=== PATIENT | male | born 1960 | race Caucasian/White ===

== ENCOUNTER 2022-07-06 17:15 | Outpatient (CLI) | payer BC, SELFPAY ==
[2022-07-06 21:20] LABS: Basophils Absolute Auto 0.05 K/uL (0.00-0.30); Basophils Percent Auto 0.6 % (0.0-3.0); Eosinophils Absolute Auto 0.28 K/uL (0.00-0.50); Eosinophils Percent Auto 3.2 % (0.0-7.0); Hematocrit 45.5 % (37.0-53.0); Hemoglobin* 16.1 gm/dL (13.5-17.5); Immature Granulocytes Abs Auto 0.08 K/uL (0.00-0.30); Immature Granulocytes Pct Auto 0.9 %; Lymphocytes Absolute Auto 2.67 K/uL (0.90-2.90); Lymphocytes Percent Auto 30.7 % (20-44); Mean Corpuscular HGB Conc 35 gm/dL (32-36); Mean Corpuscular Hemoglobin 31 pg (26-34); Mean Corpuscular Volume 86 fL (80-100); Monocytes Percent Auto 8.3 % (0.0-11.0); Neutrophils Absolute Auto 4.91 K/uL (1.7-7.0); Neutrophils Percent Auto 56.3 % (42.0-72.0); Platelet Count* 246 K/uL (140-440); RDW Coefficient of Variation % 13.3 % (11.5-15.5); Red Blood Count 5.27 m/uL (4.30-5.90); White Blood Count* 8.71 K/uL (4.50-11.00)
[2022-07-06 21:24] LABS: Slide Review Reflex No
[2022-07-06 21:36] LABS: Creatinine Urine 129.3 mg/dL
[2022-07-06 21:39] LABS: Albumin* 4.9 g/dL (3.3-5.0)
[2022-07-06 21:40] LABS: Chloride* 106 mmol/L (96-114); Potassium* 4.2 mmol/L (3.6-5.1); Sodium* 138 mmol/L (135-149)
[2022-07-06 21:42] LABS: Bilirubin Total* 0.5 mg/dL (0.1-1.5); Carbon Dioxide* 19 mmol/L (20-32); Cholesterol* 172 mg/dL (90-199); Creatinine* 0.9 mg/dL (0.5-1.5); Estimated Glomerular Filt Rate 97 ml/min
[2022-07-06 21:43] LABS: Alanine Aminotransferase* 34 U/L (4-50); Alkaline Phosphatase* 82 U/L (40-150); Aspartate Amino Transferase* 37 U/L (12-35); Blood Urea Nitrogen* 14 mg/dL (7-30); Calcium* 9.5 mg/dL (8.4-10.6); Glucose* 96 mg/dL (60-115); HDL Cholesterol* 34 mg/dL (>=40); LDL Cholesterol Calculated 80 mg/dL (<100); Total Protein* 7.7 g/dL (6.0-8.3); Triglycerides* 291 mg/dL (40-149)
[2022-07-06 21:43] LABS: Microalbumin Creatinine Ratio 10 mg/g (0-30); Microalbumin Urine 2 mg/dL
[2022-07-06 22:05] LABS: PSA Screen* 1.41 ng/mL (0.10-4.00)
== END 2022-07-06 17:16 | disposition home or self-care (01) ==
PROVIDERS: PCP Nurse Practitioner Family; Visit Provider Nurse Practitioner Family
DX: Z00.00 Encounter for general adult medical examination without abnormal findings (principal); E78.5 Hyperlipidemia, unspecified; E11.9 Type 2 diabetes mellitus without complications; Z13.0 Encounter for screening for diseases of the blood and blood-forming organs and certain disorders involving the immune mechanism; Z12.5 Encounter for screening for malignant neoplasm of prostate
CPT/HCPCS: 36415; 80053; 80061; 82043; 82570; 83036; 84153; 85025

== ENCOUNTER 2023-01-05 18:40 | Emergency (ER) | payer BC, SELFPAY ==
[2023-01-05 18:43] VITALS: BP 158/94; PULSE 83; RESP 18; TEMP 36.3; O2SAT 95; BMI 33.3
[2023-01-05] MEDS: lidocaine HCL 2 % MULTIDOSE 20 ML VIAL INJECTION (20:00)
--- NOTE | 2023-01-05 20:26 | ED.GENADULT ---
HPI - General Adult General Chief complaint: Laceration/Wound Stated complaint: Finger v Saw Time Seen by Provider: 01/05/23 18:46 History of Present Illness HPI narrative: 62-year-old man presenting to the emergency department with concern of lacerations to his fingers sustained from a table saw. He had actually just turned off the saw and reach to cross the still rotating blade. Affecting middle 4th and index finger. Middle Finger is apparently most affected ring finger next and then just and elie on the 1st finger. Spouse applied Hemabate. Apparently blood quite a bit. It is not reporting lightheadedness or shortness of breath. Is not on anticoagulation. Related Data Home Medications Medication Instructions Recorded Confirmed aspirin 81 mg tablet,delayed 81 mg PO 07/06/22 07/06/22 release Previous Rx's Medication Instructions Recorded atorvastatin 10 mg tablet 10 mg PO QHS 90 days #90 tabs 07/09/22 fenofibrate nanocrystallized 145 145 mg PO QDAY 90 days #90 tabs 07/09/22 mg tablet (Tricor) lisinopril 2.5 mg tablet 2.5 mg PO QDAY 90 days #90 tabs 07/09/22 metformin 500 mg tablet,extended 500 mg PO QDAY 90 days #90 tabs 07/09/22 release 24 hr Allergies Allergy/AdvReac Type Severity Reaction Status Date / Time No Known Drug Allergies Allergy Verified 01/05/23 18:43 Review of Systems Status of ROS: Reports: 6 or more systems reviewed and unremarkable except as noted in History and below PFSH [facility] Medical History History of colonic polyps ?Z86.010 - Personal history of colonic polyps (ICD-10) Surgical History Status post umbilical hernia repair, follow-up exam ?Z09 - Encounter for follow-up examination after completed treatment for conditions other than malignant neoplasm (ICD-10) History of colonoscopy ?Z98.890 - Other specified postprocedural states (ICD-10) History of carpal tunnel release ?Z98.890 - Other specified postprocedural states (ICD-10) Family History Family/Other Lung cancer Diabetes Social History Smoking Status: Never smoker Second hand tobacco smoke exposure: No How often do you have a drink containing alcohol: never How often do you have six or more drinks on one occasion: Never AUDIT-C Alcohol total score: 0 Non-prescribed substance use: denies use Exam Narrative: Exam Narrative: Pleasant. NAD but looks a little tremulous in think discomfort and fading adrenaline. Left hand with lightly blood stained paper towel. Some saw dust on clothing. Breathing easily. I return to block 3rd and 4th digits which appear to be most affected with lidocaine. This does result in good anesthesia. Subsequently soaked in Hibiclens solution able to remove gauze. Does lightly whose blood from fingertips. The distal/tip of the index fingers indeed just a small elie. The tip of the middle finger with regular laceration cutting the nail. In total about cm and a half. Drops ulnar side on the palmar surface of the nail. Similar ragged laceration about a cm the distal tip of the 4th finger. No apparent bony injuries. Const: Vital Signs, click to edit/add: Vital Signs - 24 hr 01/05/23 18:43 Temperature 97.4 F L Pulse Rate [Right Pulse Oximeter] 83 Respiratory Rate 18 Blood Pressure [Ri ght Upper Arm] 158/94 H Pulse Oximetry 95 Oxygen Delivery Me thod Room Air Documenting provider has reviewed patient's vital signs: yes Course Vital Signs Vital signs: Initial Vital Signs Temperature 97.4 F L 01/05/23 18:43 Temperature Source Temporal Artery Scan 01/05/23 18:43 Pulse Rate 83 01/05/23 18:43 Pulse Rhythm Regular 01/05/23 18:43 Pulse Strength 3+ Normal 01/05/23 18:43 Respiratory Rate 18 01/05/23 18:43 Blood Pressure 158/94 H 01/05/23 18:43 Blood Pressure Mean 115 H 01/05/23 18:43 Blood Pressure Position Supine 01/05/23 18:43 Pulse Oximetry 95 01/05/23 18:43 Oxygen Delivery Method Room Air 01/05/23 18:43 Vital Signs Temperature 97.4 F L 01/05/23 18:43 Pulse Rate 83 01/05/23 18:43 Respiratory Rate 18 01/05/23 18:43 Blood Pressure 158/94 H 01/05/23 18:43 Pulse Oximetry 95 01/05/23 18:43 Oxygen Delivery Method Room Air 01/05/23 18:43 Temperature 98.0 F 01/05/23 20:49 Pulse Rate 83 01/05/23 20:49 Respiratory Rate 18 01/05/23 20:49 Blood Pressure 125/78 01/05/23 20:49 Pulse Oximetry 95 01/05/23 20:47 Oxygen Delivery Method Room Air 01/05/23 20:47 Medical Decision Making MDM Narrative Medical decision making narrative: After blocking with lidocaine. Scrubbed wounds with Shur-Clens solution. Did place 3 interrupted sutures to tack in the tissues on the distal middle finger. Placed a piece of Surgicel for hemostatic control in the distal 4th finger. Both fingers and covered with antibiotic ointment and Telfa and Srinivasan wrap in a light pressure dressing. Tolerated well. See patient discharge plan Medical Records Medical records reviewed: Yes I reviewed the patient's medical records Discharge Plan Discharge Clinical Impression: Laceration of finger Patient Disposition: Home, Self-Care Condition: Improved Additional Instructions: Can clean up initially as needed. Sutures out in?8-9 days. Okay to get wet but avoid soaking while sutures are in. Antibiotic ointment for 4-5 days and then to a dry bandage. Report redness passing the next knuckle, marked increase in pain, purulent drainage. elevate for comfort.? perhaps up on pillow overnight. Ibuprofen Prescriptions: No Action aspirin 81 mg tablet,delayed release (DR/EC) 81 mg PO atorvastatin 10 mg tablet 10 mg PO QHS 90 Days Qty: 90 3RF lisinopril 2.5 mg tablet 2.5 mg PO QDAY 90 Days Qty: 90 3RF metformin 500 mg tablet extended release 24 hr 500 mg PO QDAY 90 Days Qty: 90 3RF fenofibrate nanocrystallized [Tricor] 145 mg tablet 145 mg PO QDAY 90 Days Qty: 90 3RF Follow Up/Referrals: Iris Carrion APRN, DATA SERVICES DEVELOPER [Primary Care Provider] - Stand Alone Forms: MyHealth Info Instructions
[2023-01-05 20:47] VITALS: BP 125/78; PULSE 83; RESP 18; TEMP 36.7; O2SAT 95
[2023-01-05 20:49] VITALS: BP 125/78; PULSE 83; RESP 18; TEMP 36.7
== END 2023-01-05 20:49 | disposition home or self-care (01) ==
PROVIDERS: Emergency Provider Family Medicine; PCP Nurse Practitioner Family
DX: S61.211A Laceration without foreign body of left index finger without damage to nail, initial encounter (principal); S61.213A Laceration without foreign body of left middle finger without damage to nail, initial encounter; S61.215A Laceration without foreign body of left ring finger without damage to nail, initial encounter; W27.0XXA Contact with workbench tool, initial encounter
CPT/HCPCS: 12001; 99284

== ENCOUNTER 2023-06-28 18:04 | Outpatient (CLI) | payer BC, SELFPAY | END 2023-06-28 18:05 | disposition home or self-care (01) | PROVIDERS: PCP Nurse Practitioner Family; Visit Provider Nurse Practitioner Family | DX: Z00.00 Encounter for general adult medical examination without abnormal findings (principal); E78.5 Hyperlipidemia, unspecified; E11.9 Type 2 diabetes mellitus without complications; R35.1 Nocturia; E78.1 Pure hyperglyceridemia; Z12.5 Encounter for screening for malignant neoplasm of prostate | CPT/HCPCS: 80053; 80061; 82043; 82570; 84153; 84443 ==

== ENCOUNTER 2024-06-07 10:39 | Outpatient (CLI) | payer BC, SELFPAY ==
[2024-06-07 13:46] LABS: PCR FLU A Negative PCR FLU A (Negative); PCR FLU B Negative PCR FLU B (Negative); PCR RSV Negative PCR RSV (Negative); SARS PCR* Negative SARS-CoV-2 (Negative)
== END 2024-06-07 10:40 | disposition home or self-care (01) ==
PROVIDERS: PCP Nurse Practitioner Family; Visit Provider Nurse Practitioner Family
DX: R05.9 Cough, unspecified (principal); R06.2 Wheezing
CPT/HCPCS: 80048; 85025; 87631

== ENCOUNTER 2024-07-12 08:19 | Outpatient (CLI) | payer BC, SELFPAY | END 2024-07-12 08:20 | disposition home or self-care (01) | PROVIDERS: PCP Nurse Practitioner Family; Visit Provider Nurse Practitioner Family | DX: E78.5 Hyperlipidemia, unspecified (principal); E11.65 Type 2 diabetes mellitus with hyperglycemia; Z13.29 Encounter for screening for other suspected endocrine disorder; Z12.5 Encounter for screening for malignant neoplasm of prostate; Z13.21 Encounter for screening for nutritional disorder | CPT/HCPCS: 80050; 80053; 80061; 82043; 82570; 82607; 84443; 85025; G0103 ==

== ENCOUNTER 2024-09-18 18:15 | Outpatient (CLI) | payer BC, SELFPAY | END 2024-09-18 18:16 | disposition home or self-care (01) | LOC: KYNREF 18:17 | PROVIDERS: PCP Nurse Practitioner Family; Visit Provider Nurse Practitioner Family | DX: R05.3 Chronic cough (principal) | CPT/HCPCS: 85025 ==

== ENCOUNTER 2024-09-28 13:35 | Outpatient (CLI) | payer BC, SELFPAY | END 2024-09-28 13:36 | disposition home or self-care (01) | LOC: CT 13:36 | PROVIDERS: PCP Nurse Practitioner Family; Visit Provider Nurse Practitioner Family | DX: R91.1 Solitary pulmonary nodule (principal); R05.3 Chronic cough; R91.8 Other nonspecific abnormal finding of lung field | CPT/HCPCS: 71250 ==

== ENCOUNTER 2025-06-10 08:08 | Outpatient (CLI) | payer BC, SELFPAY | END 2025-06-10 08:09 | disposition home or self-care (01) | PROVIDERS: PCP Nurse Practitioner Family; Visit Provider Nurse Practitioner Family | DX: Z00.00 Encounter for general adult medical examination without abnormal findings (principal); E11.9 Type 2 diabetes mellitus without complications | CPT/HCPCS: 80053; 80061; 82043; 82570; 82607; 84443; G0103 ==